=== PATIENT | female | born 1975 | race Caucasian/White ===

== ENCOUNTER 2019-11-05 16:59 | Emergency (ER) | payer BC, SELFPAY ==
[~2019-11-05] VITALS: Ht 160 cm; Wt 55.8 kg
[2019-11-05 17:13] VITALS: Ht 160 cm; Wt 55.8 kg
[2019-11-05 18:23] LABS: BASOPHIL % 0.7 % (0-2); PLATELET COUNT 210 x10^3mcL (130-400); RED CELL DISTRIBUTION WIDTH 12.9 % (11.5-14.5)
[2019-11-05 18:36] LABS: CARBON DIOXIDE 25.9 mmol/L (21-32); CHLORIDE SERUM 103 mmol/L (98-107); CREATININE SERUM 0.9 mg/dL (0.6-1.0); GFR1 > 60 mL/min; GLUCOSE SERUM 97 mg/dL (74-106); POTASSIUM SERUM 3.8 mmol/L (3.5-5.1); SODIUM SERUM 138 mmol/L (136-145)
[2019-11-05 18:41] LABS: ALBUMIN 3.9 g/dL (3.4-5.0); ALKALINE PHOSPHATASE 57 U/L (46-116); ALT/SGPT 15 U/L (14-59); AST/SGOT 11 U/L (15-37); BILIRUBIN TOTAL 0.39 mg/dL (0.20-1.00); LACTIC DEHYDROGENASE (LDH) 176 U/L (100-190)
[2019-11-05 18:53] LABS: C REACTIVE PROTEIN < 0.2 mg/dL (<=0.9)
[2019-11-05 19:55] VITALS: BP 111/73
== END 2019-11-05 19:55 | disposition home or self-care (01) ==
LOC: ED 16:59
PROVIDERS: Emergency Medicine
DX: R05 Cough (principal); R09.89 Other specified symptoms and signs involving the circulatory and respiratory systems; Z20.828 Contact with and (suspected) exposure to other viral communicable diseases
CPT/HCPCS: 36415; 83880; 87804; J1885; Q0092